=== PATIENT | female | born 1970 | race Asian ===

== ENCOUNTER 2025-06-09 11:58 | Emergency (ER) | payer BC, SELFPAY ==
[2025-06-09 12:02] VITALS: BP 144/95
[2025-06-09 12:18] LABS: Hematocrit 39.2 % (37.0-47.0); Hemoglobin 13.0 g/dL (12.0-16.0); Mean Corp Hgb Conc. 33.2 g/dL (33.0-37.0); Mean Corpuscular Volume 88.7 fL (81.0-99.0); Nucleated Red Blood Cells % 0 %; Platelet Count 305 10^3/uL (130-400); Red Cell Dist. Width 13.2 % (11.5-14.5)
[2025-06-09 12:37] LABS: HCG, Serum Qualitative Screen Negative
[2025-06-09 12:42] LABS: ALT (SGPT) 40 U/L (0-35); AST (SGOT) 24 U/L (14-36); Albumin 4.2 g/dl (3.5-5.0); Alkaline Phosphatase 62 U/L (38-126); Blood Urea Nitrogen 6 mg/dl (7-17); Calcium 9.4 mg/dl (8.4-10.2); Carbon Dioxide 28 mmol/L (22-30); Chloride 108 mmol/L (98-107); Glucose 114 mg/dl (70-99); Potassium 4.2 mmol/L (3.5-5.1); Sodium 141 mmol/L (135-145); Total Protein 6.9 g/dl (6.3-8.2); eGFR > 60.00
[2025-06-09 15:54] VITALS: BP 146/99
--- NOTE | 2025-06-09 16:02 | ED.GENMED ---
History of Present Illness
General
Chief Complaint: Heart Rate Problem
Source: patient
Exam Limitations: none
Time Seen by Provider: 06/09/25 15:32
Nursing documentation reviewed up to this point in time: agreed with
History of Present Illness
History of Present Illness:
55-year-old female with history of iron deficiency anemia presents from urgent care for 'abnormal EKG.'
Pt states she's had a persistent cough and loss of voice, general body aches for the past two and a half weeks. The cough is not continuous throughout the day, but when present, it causes chest pain at times. Has had poor appetite past 2 days. Her
upper and lower abdomen are sore, worse with coughing. Intermittent headache also. Advil Sinus relieves the pain temporarily. Had similar symptoms last year this time.No recent travel, no known sick contacts.
Pt went to , tested Covid neg, had neg CXR, rx for Zpack and Benzonatate 200 mg capsules sent to her pharmacy.
Her EKG at was concerning for tachycardia vs. a flutter so sent here for evaluation
Past History
Past History
ED Past Medical History: Other (Iron deficiency anemia)
ED Past Surgical History: Other (Hemorrhoidectomy)
Social History
Tobacco: Non-smoker
Personal:
Living: with family
Employment: Employed
Review of Systems
Review of Systems
Allergies reviewed?: Yes
All Other Systems: ROS reviewed and negative except as documented in HPI and ROS
Constitutional: Denies fever
Respiratory: Reports cough (Coughing up 'thick chunky stuff.'); Denies trouble breathing
Cardiac: Denies chest pain
ABD/GI: Denies nausea, vomiting or diarrhea
Phy Exam
Physical Exam
Physical Exam:
GENERAL: No acute distress. A&Ox3.
CONSTITUTIONAL: Afebrile.
EYES: clear, conjunctivae normal
ENMT: moist mucus membranes, Pharynx nl, voice hoarse
RESPIRATORY: Regular respirations, nonlabored, lungs clear. Intermittent cough.
CARDIOVASCULAR: Regular rate and rhythm, no murmurs, no rubs. Heart rate 118 on arrival, sinus rhythm on monitor and EKG
GI: Soft, nontender, normal BS
MUSCULOSKELETAL: Moves with ease. Well perfused.
SKIN: Warm, dry, pink
PSYCH: Normal mood and affect. Well kept, interactive and appropriate
NEUROLOGIC: Awake, alert and oriented. No focal neurological deficits
Course
Orders/Labs/Results
Orders:
Orders
06/09/25 12:06
EKG [Electrocardiogram (*1)] Urgent
Reason for Study: Tachycardia
EKG- Treatment ONCE
06/09/25 12:07
Test Result ONCE
06/09/25 12:12
CBC/With Diff [Complete Blood Count/With Diff] Urgent
CMP [Comprehensive Metabolic Panel] Urgent
, Serum Qualitative Screen [HCG, Serum Qualitative Screen] Urgent
Abnormal Lab Results
06/09/25
12:12
Absolute Lymphs (auto) 1.1 L 10^3/uL
(1.2-3.4)
Neutrophils % 76.0 H %
(42.2-75.2)
Lymphocytes % 14.9 L %
(20.5-51.1)
Chloride 108 H mmol/L
(98-107)
BUN 6 L mg/dl
(7-17)
Creatinine 0.4 L mg/dL
(0.6-1.0)
Glucose 114 H mg/dl
(70-99)
ALT 40 H U/L
(0-35)
06/09/25 12:12
06/09/25 12:12
Vital Signs
Initial and Last Documented VS:
Initial Vital Signs
Temp Pulse Resp BP Pulse Ox
98.7 F 118 14 144/95 97
06/09/25 12:02 06/09/25 12:02 06/09/25 12:02 06/09/25 12:02 06/09/25 12:02
Last Documented Vital Signs
Temp Pulse Resp BP Pulse Ox
98.7 F 109 16 146/99 98
06/09/25 12:02 06/09/25 15:54 06/09/25 15:54 06/09/25 15:54 06/09/25 16:08
MDM/Problems Addressed
Differential Diagnosis Includes:
Bronchitis, pneumonia, COVID
MDM/Problems Addressed:
55-year-old female with history of iron deficiency anemia presents from urgent care for 'abnormal EKG.'
Pt states she's had a persistent cough and loss of voice, general body aches for the past two and a half weeks. The cough is not continuous throughout the day, but when present, it causes chest pain at times. Has had poor appetite past 2 days. Her
upper and lower abdomen are sore, worse with coughing. Intermittent headache also. Advil Sinus relieves the pain temporarily. Had similar symptoms last year this time.No recent travel, no known sick contacts.
Pt went to , tested Covid neg, had neg CXR, rx for Zpack and Benzonatate 200 mg capsules sent to her pharmacy.
Her EKG at was concerning for tachycardia vs. a flutter so sent here for evaluation
EKG: Sinus tachycardia heart rate 118
4:00 PM:
CBC, CMP normal
After drinking 500 mL of water patient's heart rate is now in the 90s, sinus
She appears well and wants to go home
Stable for discharge.
Final diagnosis: Bronchitis (most likely viral), laryngitis
*Pulse Oximetry
SaO2: 98
Oxygen Mode of Delivery: Room air
Patient hypoxic: no
*Critical Care Note
Total Time (30-74mins, 75-104mins- exclusive of procedures): Not Applicable
ED Attending Note
-
Portions of this chart may have been created with voice recognition software.� Occasional wrong word or��sound alike� substitutions may have occurred due to the inherent limitations of voice recognition software.
Discharge Plan
Departure
Patient Disposition: Home (Routine Discharge)
Date of Disposition: 06/09/25
Time of Disposition: 16:13
Patient with high blood pressure during this ER visit?: No
Condition: Good
Discharge Problem:
Acute bronchitis, Laryngitis
Instructions: Bronchitis in adults - ED (DC), Laryngitis - ED (DC)
Activity Restrictions/Additional Instructions:
As we discussed, nothing worrisome in your workup here today. Specifically your heart rate is normal sinus although a little fast, drinking plenty of fluids will help this.
Standing in a hot shower and breathing in the warm moist air may help break up that thick stuff that you are coughing up in your lungs.
Interventions
Interventions:
*Risk Screen - Suicide Last Done: 06/09/25 12:02
*General Assessment Last Done: 06/09/25 12:02
*Neglect/Abuse Screening Last Done: 06/09/25 15:49
*ED- Fall Risk Assessment Last Done: 06/09/25 16:35
*ED COVID-19 Vaccine History Last Done: 06/09/25 12:02
*Nursing Disposition Last Done: 06/09/25 16:35
ED- Cardiac Assessment Last Done: 06/09/25 15:55
ED- Pulmonary Assessment Last Done: 06/09/25 15:55
Discharge Date and Time
Discharge Date/Time: 06/09/25 16:36
Print Language: IRISH
== END 2025-06-09 16:36 | disposition home or self-care (01) ==
LOC: EMR 11:58
PROVIDERS: Emergency Medicine; EMERGENCY PHYSICIAN Emergency Medicine; FAMILY PHYSICIAN Internal Medicine
DX: J20.9 Acute bronchitis, unspecified (principal); J04.0 Acute laryngitis; R00.0 Tachycardia, unspecified
CPT/HCPCS: 99284; 80053; 84703; 85025; 93005